=== PATIENT | male | born 1985 | race Caucasian/White ===

== ENCOUNTER 2017-01-16 19:22 | Emergency (ER) | payer BC, MEDICAID ==
[~2017-01-16] VITALS: Ht 182.9 cm; Wt 147.5 kg
[2017-01-16 19:22] VITALS: BP 144/92; PULSE 98; RESP 16; TEMP 97.9; O2SAT 100
[~2017-01-16 19:22] MED LIST: HYDR-3533 PO; NAPR500 PO
[2017-01-16 20:37] VITALS: PULSE 74; RESP 18; O2SAT 96
[2017-01-16] MEDS ORDERED: RESP: ALBUTEROL 2.5 MG/IPRATROPIUM 0.5 MG NEB (SCH) NEB ONE ×2 (20:45)
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
[2017-01-16 21:11] VITALS: O2SAT 96
== END 2017-01-16 22:19 | disposition home or self-care (01) ==
LOC: NEPC 19:22
DX: R06.02 Shortness of breath (principal); R07.89 Other chest pain; R00.0 Tachycardia, unspecified; R05 Cough; J02.9 Acute pharyngitis, unspecified; I10 Essential (primary) hypertension
CPT/HCPCS: 71010; 82375; 94664; 99284